=== PATIENT | male | born 1960 | race Caucasian/White ===

== ENCOUNTER 2021-04-04 14:19 | Emergency (ER) | payer OTHER ==
[~2021-04-04] VITALS: Ht 182.9 cm; Wt 81.2 kg
[~2021-04-04 14:19] MED LIST: ACEDIPPM; ACEDIPPM PO; ALBU90OI INH; AZIT250 PO; FLUO10 PO; FLUO20 PO; HYDACE5 PO; IBUP800 PO; LISI10 PO; METO25 PO; OXYACE5T PO; RISP2 PO; TADA10TA PO; TRAZ100 PO
[2021-04-04] MEDS ORDERED: IBU600 M1 PO (15:41)
== END 2021-04-04 15:40 | disposition home or self-care (01) ==
LOC: ER 14:19
DX: S46.002A Unspecified injury of muscle(s) and tendon(s) of the rotator cuff of left shoulder, initial encounter (principal); Z79.899 Other long term (current) drug therapy; X50.0XXA Overexertion from strenuous movement or load, initial encounter
CPT/HCPCS: 99282